=== PATIENT | male | born 1950 | race Caucasian/White ===

== ENCOUNTER → 2017-09-10 | Outpatient (CLI) | payer BC ==
[~2017-09-10] MED LIST: ATOR10 PO; Aspirin EC81 MG PO; Azor 5-40 MG T1 EACH PO; CVS OMEGA-3 KR1 EACH PO; DAILY MULTIPLE1 EACH PO; Fluorouracil10 M1; NAPR500EC PO; Voltaren100 GM TOP
== END ==
LOC: LAB SHORT 13:58 → PLD 13:58
DX: D48.5 Neoplasm of uncertain behavior of skin (principal)
CPT/HCPCS: 88305

== ENCOUNTER 2020-04-28 05:54 | Inpatient (IN) | payer OTHER ==
[~2020-04-28] VITALS: Ht 177.8 cm; Wt 76.5 kg
[2020-04-28 06:25] LABS: BASOPHILS ABSOLUTE AUTO 0.08 K/mm3 (0.00-0.23); BASOPHILS PERCENT AUTO 1 % (0-2); EOSINOPHILS ABSOLUTE AUTO 0.34 K/mm3 (0.00-0.68); EOSINOPHILS PERCENT AUTO 3 % (0-6); Hematocrit 31.5 % (37.0-53.0); Hemoglobin 10.9 g/dL (13.5-17.5); IMMATURE GRAN ABSOLUTE AUTO 0.07 K/mm3 (0.00-0.10); IMMATURE GRAN PERCENT AUTO 1 % (0-1); LYMPHOCYTES ABSOLUTE AUTO 1.35 K/mm3 (0.84-5.20); LYMPHOCYTES PERCENT AUTO 13 % (21-46); MONOCYTES ABSOLUTE AUTO 1.84 K/mm3 (0.16-1.47); MONOCYTES PERCENT AUTO 17 % (4-13); Mean Corpuscular HGB 37.5 pg (26.0-34.0); Mean Corpuscular HGB Conc 34.6 g/dL (31.5-36.5); Mean Corpuscular Volume 108 fL (80-100); Mean Platelet Volume 9.9 fL (9.1-12.4); NEUTROPHILS ABSOLUTE AUTO 7.15 K/mm3 (1.96-9.15); NEUTROPHILS PERCENT AUTO 66 % (41-73); Platelet Count 104 K/mm3 (150-400); RDW Coefficient Variation 14.1 % (11.7-14.2); RDW Standard Deviation 56.2 fL (35.1-46.3); Red Blood Cell Count 2.91 M/mm3 (4.30-5.90); White Blood Cell Count 10.83 K/mm3 (4.00-11.30)
[2020-04-28 09:49] LABS: Influenza A, PCR Negative (NEGATIVE); Influenza B, PCR Negative (NEGATIVE); Resp Syncytial Virus, PCR Negative (NEGATIVE); SARS-Cov-2 (COVID-19) PCR, MMC Negative (NEGATIVE)
[2020-04-28 10:28] LABS: Alanine Aminotransfer (ALT/SGP 35 U/L (12-78); Albumin, Blood 2.9 g/dL (3.4-5.0); Albumin/Globulin Ratio 0.6 (0.8-1.8); Alk Phos 123 U/L (50-136); Anion Gap 11 mmol/L (6-16); Aspartate Aminotrans (AST/SGOT 73 U/L (12-37); Bilirubin, Total 5.1 mg/dL (0.1-1.0); Blood Urea Nitrogen 7 mg/dL (8-24); Bun/Creatinine Ratio 8.6 (12.0-20.0); CO2, Blood 21 mmol/L (21-32); Calcium, Blood 8.2 mg/dL (8.5-10.1); Chloride, Blood 95 mmol/L (98-108); Creatinine, Blood 0.81 mg/dL (0.60-1.20); Globulin, Blood 4.9 g/dL (2.2-4.0); Glomerular Filtration Rate >60 (60-); Glucose, Blood 113 mg/dL (70-99); Potassium, Blood 4.2 mmol/L (3.5-5.5); Sodium, Blood 127 mmol/L (136-145); Total Protein, Blood 7.8 g/dL (6.4-8.2); Troponin I 0.043 ng/mL (0.000-0.040)
[2020-04-28] MEDS ORDERED: AMLODIPINE-OLM1 EAC2 PO (11:46)
[2020-04-28] MEDS ORDERED: ALLERCLEAR10 MG PO (14:02)
--- NOTE | 2020-04-28 14:11 | NUR ---
pt arrived to p[facility] 1 via [facility] from ED. report recieved, in attendence, pt able to stand and transfer himself to the bed, a/ox3, pleasant and cooperative with care, follows commands well, denies pain, states he's breathing much better than when he came in, lungs are a bit course in bases, clear in upper n[place], resp even and unlabored, no cough noted, hrr, tele in place running sr to st per monitor, see strip, 2+ pitting edema noted to b/l le, mid way up leg, iv is saline lock, site is clear and patent, btx4, abd round soft nontender, voids via urinal without diff, skin c/w/d, face is flushed, juan castaneda, oriented to room layout and call system, call light in reach.
--- NOTE | 2020-04-28 16:00 | NUR ---
PT HANDS SHAKEY, STATES FEELING ANXIOUS/ MED WITH ATIVAN PER EMAR. 0.5 MG TO START.
--- NOTE | 2020-04-28 16:39 | NUR ---
PT RESTING, EYES CLOSED. RESP EASY, UNLABORED. DID NOT AWAKEN
--- NOTE | 2020-04-28 17:59 | NUR ---
received pt care at 1500 this aft. has been quite pleasant and coop. states was some shakey and hands trembling about 4pm. admin 1/2 mg ativan. he relaxed and rested for some time. ate better than half of dinner. left after he ralaxed. no new concerns at this time. bed in low position, call lite in reach, calls approp.
--- NOTE | 2020-04-28 18:02 | NUR ---
echocardiogram completed
--- NOTE | 2020-04-29 00:44 | NUR ---
CALLED DR. KELLOGG. NOTIFIED HER PATIENT'S TEMPERATURE WAS 101.0, GAVE TYLENOL 500 MG PO PER EMAR, AND THEN 1 HOUR LATER IT WAS 100.9. READ HER CHEST X RAY REPORT. PATIENT NOT ON ABX, NO KNOWN DRUG ALLERGIES. ORDERS RECEIVED FOR ROCEPHIN 1G IV NOW AND THEN DAILY, AZITHROMYCIN 500 MG IV NOW AND THEN DAILY, BLOOD CULTURES STAT. NOTIFIED HER PATIENT'S TROPONIN TRENDING UP, FIRST ONE 0.043 AND MOST RECENT 0.420, ORDERS RECEIVED TO DRAW TROPONIN IN AM. ORDERS READ BACK AND VERIFIED.
[2020-04-29 03:53] LABS: BASOPHILS ABSOLUTE AUTO 0.06 K/mm3 (0.00-0.23); BASOPHILS PERCENT AUTO 1 % (0-2); EOSINOPHILS ABSOLUTE AUTO 0.66 K/mm3 (0.00-0.68); EOSINOPHILS PERCENT AUTO 8 % (0-6); Hematocrit 27.5 % (37.0-53.0); Hemoglobin 9.5 g/dL (13.5-17.5); IMMATURE GRAN ABSOLUTE AUTO 0.03 K/mm3 (0.00-0.10); IMMATURE GRAN PERCENT AUTO 0 % (0-1); LYMPHOCYTES ABSOLUTE AUTO 1.25 K/mm3 (0.84-5.20); LYMPHOCYTES PERCENT AUTO 15 % (21-46); MONOCYTES ABSOLUTE AUTO 1.47 K/mm3 (0.16-1.47); MONOCYTES PERCENT AUTO 17 % (4-13); Mean Corpuscular HGB 37.4 pg (26.0-34.0); Mean Corpuscular HGB Conc 34.5 g/dL (31.5-36.5); Mean Corpuscular Volume 108 fL (80-100); Mean Platelet Volume 9.3 fL (9.1-12.4); NEUTROPHILS ABSOLUTE AUTO 5.01 K/mm3 (1.96-9.15); NEUTROPHILS PERCENT AUTO 59 % (41-73); Platelet Count 92 K/mm3 (150-400); RDW Coefficient Variation 14.3 % (11.7-14.2); RDW Standard Deviation 56.2 fL (35.1-46.3); Red Blood Cell Count 2.54 M/mm3 (4.30-5.90); White Blood Cell Count 8.48 K/mm3 (4.00-11.30)
[2020-04-29 04:24] LABS: Anion Gap 6 mmol/L (6-16); Blood Urea Nitrogen 14 mg/dL (8-24); Bun/Creatinine Ratio 12.1 (12.0-20.0); CO2, Blood 27 mmol/L (21-32); Calcium, Blood 7.8 mg/dL (8.5-10.1); Chloride, Blood 96 mmol/L (98-108); Creatinine, Blood 1.16 mg/dL (0.60-1.20); Glomerular Filtration Rate >60 (60-); Glucose, Blood 86 mg/dL (70-99); Potassium, Blood 4.2 mmol/L (3.5-5.5); Sodium, Blood 129 mmol/L (136-145); Troponin I 0.417 ng/mL (0.000-0.040)
--- NOTE | 2020-04-29 05:54 | NUR ---
SHIFT SUMMARY: PATIENT A/OX3. HAS BEEN PLEASANT AND COOPERATIVE WITH CARE. CIWA INCREASING, LAST CIWA 5 D/T TREMORS AND SWEAT. TELE HAS SHOWN SINUS RHYTHM. PATIENT HAS DENIED CHEST PAIN AND PALPITATIONS THROUGHOUT THE SHIFT. ON 2L O2 VIA NC. STATES THAT HIS BREATHING FEELS "MUCH BETTER". STANDS TO USE URINAL. AMBULATED TO BATHROOM WITH SBA, REPORTED SLIGHT SOB BUT STATES THAT IT IS MUCH BETTER THAN PRIOR TO ADMISSION. HAD KELVIN ROBLERO MD NOTIFIED, STAT BLOOD CULTURES DRAWN AND ABX ORDERED. TROPONIN THIS AM 0.417, SLIGHTLY DECREASED FROM PREVIOUS TROPONIN OF 0.420. WILL CONTINUE TO MONITOR AND REPORT TO ONCOMING RN.
--- NOTE | 2020-04-29 17:26 | NUR ---
SHIFT ASSESMENT; A/A/OX4 THROUGHOUT SHIFT. L/S CLEAR, 2L 02 VIA NC. SCHEDULED FOR NUC MED STUDY TOMORROW AM, NPO AFTER MIDNIGHT. CIWA ASSESSED Q4 AND MEDICATED ORDERED. VSS WITH SLIGHT INCREASED TEMP OF 100.1. OFFERED PO TYL FOR TEMP, DECLINED BY PT. SLEEPING INTERMITANTLY THROUGHOUT DAY, SPOUSE AT BEDSIDE DURING SHIFT. UP TO BEDSIDE TO USE URINAL INDEPENDANTLY WITHOUT DIFFICULTY DURING SHIFT. WILL CONTINUE TO MONITOR AND TREAT UNTIL CHANGE OF SHIFT.
--- NOTE | 2020-04-29 21:02 | NUR ---
ASSUMED CARE OF PATIENT, GIBRAN MIXON MOVED TO ICU. PATIENT AWAKE, ALERT, TALKING, CALL LIGHT IN REACH. SEE i'mma FOR FULL ASSESSMENT.
--- NOTE | 2020-04-30 01:31 | NUR ---
patient has nose bleed, using tissue to attempt to stop. will monitor.
[2020-04-30 04:01] LABS: Hemoglobin 8.7 g/dL (13.5-17.5); Mean Corpuscular HGB 37.5 pg (26.0-34.0); Mean Corpuscular HGB Conc 34.8 g/dL (31.5-36.5); Mean Corpuscular Volume 108 fL (80-100); Platelet Count 99 K/mm3 (150-400); RDW Coefficient Variation 14.2 % (11.7-14.2); RDW Standard Deviation 55.4 fL (35.1-46.3); Red Blood Cell Count 2.32 M/mm3 (4.30-5.90); White Blood Cell Count 8.13 K/mm3 (4.00-11.30)
--- NOTE | 2020-04-30 04:16 | NUR ---
NOSE CONTINUES TO BLEED. PATIENT PACKING NOSE WITH TISSUES.
[2020-04-30 04:24] LABS: Anion Gap 6 mmol/L (6-16); Blood Urea Nitrogen 20 mg/dL (8-24); Bun/Creatinine Ratio 15.9 (12.0-20.0); CO2, Blood 28 mmol/L (21-32); Calcium, Blood 8.1 mg/dL (8.5-10.1); Chloride, Blood 95 mmol/L (98-108); Creatinine, Blood 1.26 mg/dL (0.60-1.20); Glomerular Filtration Rate >60 (60-); Glucose, Blood 89 mg/dL (70-99); Potassium, Blood 4.1 mmol/L (3.5-5.5); Sodium, Blood 129 mmol/L (136-145)
--- NOTE | 2020-04-30 07:42 | NUR ---
NURSING PCU DAYSHIFT: Assumed care of pt at approx 0700. A/O, very pleasant and cooperative w/care. Mild general weakness noted in LE's r/t current illness, stands at bedside independently and w/o difficulty. Denies any pain/discomfort at rest. Skin is dry, intact w/no breakdown noted. Temp 100.3, tylenol administered as ordered. Tele in place, SR, no c/o CP/pressure, murmur noted, SBP 100, trace-1+ BLE edema. L/S fairly cta t/o, O2 sat mid 90's on RA, mild dyspnea w/exertion, occ dry/BACK ROLLER cough. Abd SNT, BT+, urgency voiding r/t IV diuretic, u/o clear/orange. 20g PIV in LAC, s/l, flushes w/o difficulty. No s/s of acute distress at this time. Nuc med at bedside for injection r/t resting portion of stress test, Lexiscan scheduled for approx 1400. Pt denies any current needs or questions regarding plan of care. Call light in reach, awaiting rounding from PMD, cont to monitor for any changes.
[2020-04-30 15:43] LABS: Source, Urine Voided
[2020-04-30 15:54] LABS: Appearance, Urine Clear (Clear); Bilirubin, Urine Neg (Neg); Blood, Urine 1+ (Neg); Color, Urine Yellow (P-Yellow); Glucose Qualitative, Urine Neg (Neg); Ketones, Urine Neg (Neg); Leukocyte Esterase, Urine Neg (Neg); Nitrite, Urine Neg (Neg); Protein, Urine Neg (Neg); Specific Gravity, Urine 1.015 (1.003-1.022); Urobilinogen, Urine 1+ (Normal)
[2020-04-30 16:03] LABS: Bacteria Rare /hpf; Squamous Epithelial Cells Rare /hpf (Few); White Blood Cells, Urine 0-2 /hpf (0-5)
--- NOTE | 2020-04-30 17:47 | NUR ---
NURSING PCU DAYSHIFT SUMMARY: No acute changes noted t/o the shift. Pt remains febrile w/temp 99-100.3, room temperature remains turned down, extra blankets removed. One day stress test completed, results reviewed, pt tolerated well. Seen by PMD, new d/o received, UA sent as ordered. Pt denies any current needs or questions, call light in reach, cont to monitor until prt is given to NOC RN.
[2020-05-01 04:03] LABS: BASOPHILS ABSOLUTE AUTO 0.06 K/mm3 (0.00-0.23); BASOPHILS PERCENT AUTO 1 % (0-2); EOSINOPHILS ABSOLUTE AUTO 0.46 K/mm3 (0.00-0.68); EOSINOPHILS PERCENT AUTO 7 % (0-6); Hematocrit 26.8 % (37.0-53.0); Hemoglobin 9.2 g/dL (13.5-17.5); IMMATURE GRAN ABSOLUTE AUTO 0.02 K/mm3 (0.00-0.10); IMMATURE GRAN PERCENT AUTO 0 % (0-1); LYMPHOCYTES ABSOLUTE AUTO 1.59 K/mm3 (0.84-5.20); LYMPHOCYTES PERCENT AUTO 24 % (21-46); MONOCYTES ABSOLUTE AUTO 1.34 K/mm3 (0.16-1.47); MONOCYTES PERCENT AUTO 20 % (4-13); Mean Corpuscular HGB 36.9 pg (26.0-34.0); Mean Corpuscular HGB Conc 34.3 g/dL (31.5-36.5); Mean Corpuscular Volume 108 fL (80-100); NEUTROPHILS ABSOLUTE AUTO 3.23 K/mm3 (1.96-9.15); NEUTROPHILS PERCENT AUTO 48 % (41-73); Platelet Count 108 K/mm3 (150-400); RDW Coefficient Variation 13.9 % (11.7-14.2); RDW Standard Deviation 54.2 fL (35.1-46.3); Red Blood Cell Count 2.49 M/mm3 (4.30-5.90)
[2020-05-01 04:18] LABS: Alanine Aminotransfer (ALT/SGP 25 U/L (12-78); Albumin, Blood 2.5 g/dL (3.4-5.0); Albumin/Globulin Ratio 0.6 (0.8-1.8); Alk Phos 86 U/L (50-136); Anion Gap 5 mmol/L (6-16); Aspartate Aminotrans (AST/SGOT 43 U/L (12-37); Bilirubin, Total 3.8 mg/dL (0.1-1.0); Blood Urea Nitrogen 22 mg/dL (8-24); Bun/Creatinine Ratio 20.2 (12.0-20.0); CO2, Blood 31 mmol/L (21-32); Calcium, Blood 8.5 mg/dL (8.5-10.1); Chloride, Blood 96 mmol/L (98-108); Creatinine, Blood 1.09 mg/dL (0.60-1.20); Glomerular Filtration Rate >60 (60-); Glucose, Blood 90 mg/dL (70-99); Potassium, Blood 4.1 mmol/L (3.5-5.5); Sodium, Blood 132 mmol/L (136-145); Total Protein, Blood 6.5 g/dL (6.4-8.2)
--- NOTE | 2020-05-01 07:46 | NUR ---
SHIFT SUMMARY PATIENT VERY PLEASENT THROUGHOUT THE NIGHT AND APPEARED TO ENJOY JOKING WITH STAFF. PATIENT APPEARED TO NAP ON AND OFF OCCATIONALLY THROUGHOUT THE NIGHT BUT PATIENT REPORTS HE DOES NOT FEEL LIKE HE WAS ABLE TO SLEEP WELL. PATIENT ABLE TO MOVE SELF ABOUT IN BED. PATIENT ENCOURAGED TO KEEP THE HEAT DOWN IN HIS ROOM AND KEEP BLAKENTS OFF MUCH POSSIBLE TO ASSIST WITH KEEPING HIS TEMP DOWN, HOWEVER, PATIENT WOULD FREQUENTLY PULL HIS BLANKETS UP ANYWAY. VITAL SIGNS CHARTED. TYELNOL GIVEN FOR ELEVATED TEMP PER EMAR. REPORT GIVEN TO ONCOMING RN.
--- NOTE | 2020-05-01 10:13 | NUR ---
Call to Milli Kay, principal planner, in order to ask about tx options to be given to pt regarding alcohol abuse.
[2020-05-01] MEDS ORDERED: AZIT500 PO (11:02)
[2020-05-01] MEDS ORDERED: SPIR25 PO (11:03)
[2020-05-01] MEDS ORDERED: Furosemide40 MG PO (11:03)
--- NOTE | 2020-05-01 11:21 | NUR ---
Reviewed discharge information with the pt; he states that his abdominal ultrasound was completed. STates that his can not come to pick him up and take him home until 4 pm today.
== END 2020-05-01 13:30 | disposition home or self-care (01) | DRG 291 ==
LOC: ER 05:54 → PCU 12:26
PROVIDERS: Emergency Medicine; ADMIT Internal Medicine
DX: I11.0 Hypertensive heart disease with heart failure (principal); J96.01 Acute respiratory failure with hypoxia; I50.41 Acute combined systolic (congestive) and diastolic (congestive) heart failure; K74.60 Unspecified cirrhosis of liver; E78.5 Hyperlipidemia, unspecified; Z20.828 Contact with and (suspected) exposure to other viral communicable diseases; F10.20 Alcohol dependence, uncomplicated; Z87.891 Personal history of nicotine dependence; Z79.82 Long term (current) use of aspirin
CPT/HCPCS: 0241U; 36415; 71045; 71046; 76705; 78452; 80048; 80053; 81001; 83880; 84145; 84484; 85025; 85027; 87040; 93005; 93010; 93017; 93306; 96374; 96375; 99285-25; A9270; A9270-GY; A9500; C9113; J0696; J1940; J2060; J2405; J2785; J7030; J7050

== ENCOUNTER → 2020-08-14 | Outpatient (CLI) | payer OTHER ==
[~2020-08-14] MED LIST changes: +ALLERCLEAR10 MG PO; +AMLODIPINE-OLM1 EAC2 PO; +ASPI81CH PO; +AZIT500 PO; +Furosemide40 MG PO; +LASIX20 M2 PO; +LOSA25 PO; +Lopressor 25 mg25 MG PO; +SPIR25 PO
== END ==
LOC: LAB 09:11 → LAB SHORT 09:11
DX: D48.5 Neoplasm of uncertain behavior of skin (principal)
CPT/HCPCS: 88305

== ENCOUNTER 2020-08-27 16:34 | Observation (INO) | payer OTHER ==
[~2020-08-27] VITALS: Ht 177.8 cm; Wt 80.4 kg
[~2020-08-27 16:34] MED LIST changes: -ASPI81CH PO; -LASIX20 M2 PO; -LOSA25 PO; -Lopressor 25 mg25 MG PO
[2020-08-27] MEDS ORDERED: AMLODIPINE-OLM1 EAC2 PO (17:30)
[2020-08-27] MEDS ORDERED: ATOR10 PO (17:30)
[2020-08-27 17:54] LABS: BASOPHILS ABSOLUTE AUTO 0.05 K/mm3 (0.00-0.23); BASOPHILS PERCENT AUTO 1 % (0-2); EOSINOPHILS ABSOLUTE AUTO 0.24 K/mm3 (0.00-0.68); EOSINOPHILS PERCENT AUTO 4 % (0-6); Hematocrit 36.2 % (37.0-53.0); Hemoglobin 12.6 g/dL (13.5-17.5); IMMATURE GRAN ABSOLUTE AUTO 0.01 K/mm3 (0.00-0.10); IMMATURE GRAN PERCENT AUTO 0 % (0-1); LYMPHOCYTES ABSOLUTE AUTO 1.46 K/mm3 (0.84-5.20); LYMPHOCYTES PERCENT AUTO 27 % (21-46); MONOCYTES ABSOLUTE AUTO 0.79 K/mm3 (0.16-1.47); MONOCYTES PERCENT AUTO 14 % (4-13); Mean Corpuscular HGB Conc 34.8 g/dL (31.5-36.5); Mean Corpuscular Volume 101 fL (80-100); Mean Platelet Volume 9.9 fL (9.1-12.4); NEUTROPHILS ABSOLUTE AUTO 2.95 K/mm3 (1.96-9.15); NEUTROPHILS PERCENT AUTO 54 % (41-73); Platelet Count 143 K/mm3 (150-400); RDW Coefficient Variation 15.3 % (11.7-14.2); RDW Standard Deviation 57.5 fL (35.1-46.3)
[2020-08-27 17:57] LABS: Alanine Aminotransfer (ALT/SGP 40 U/L (12-78); Albumin, Blood 3.4 g/dL (3.4-5.0); Albumin/Globulin Ratio 0.7 (0.8-1.8); Alk Phos 102 U/L (50-136); Anion Gap 7 mmol/L (6-16); Aspartate Aminotrans (AST/SGOT 60 U/L (12-37); Bilirubin, Total 2.1 mg/dL (0.1-1.0); Blood Urea Nitrogen 17 mg/dL (8-24); Bun/Creatinine Ratio 15.5 (12.0-20.0); CO2, Blood 24 mmol/L (21-32); Calcium, Blood 9.2 mg/dL (8.5-10.1); Chloride, Blood 107 mmol/L (98-108); Globulin, Blood 4.6 g/dL (2.2-4.0); Glomerular Filtration Rate >60 (60-); Glucose, Blood 98 mg/dL (70-99); Potassium, Blood 4.2 mmol/L (3.5-5.5); Sodium, Blood 138 mmol/L (136-145)
[2020-08-27 18:04] LABS: Troponin I 0.631 ng/mL (0.000-0.040)
[2020-08-27 21:14] LABS: Percent Saturation 24.7 % (20.0-50.0)
--- NOTE | 2020-08-28 03:56 | NUR ---
SHIFT SUMMARY ADMITTED FROM ER THIS SHIFT FOR CHF EXACERBATION. FULL CODE. TROPONIN, BNP, ELEVATED. RAPID COVID TEST NEGATIVE. SMALL RIGHT PLEURAL EFFUSION. TRACE EDEMA IN BLE. PLAN IS FOR ASA AND LASIX. TELEMETRY: NSR @ 84 BPM. SYSTOLIC MURMUR. PT IS A&O X4, INDEPENDENT.
[2020-08-28 05:28] LABS: BASOPHILS ABSOLUTE AUTO 0.07 K/mm3 (0.00-0.23); BASOPHILS PERCENT AUTO 1 % (0-2); EOSINOPHILS ABSOLUTE AUTO 0.38 K/mm3 (0.00-0.68); EOSINOPHILS PERCENT AUTO 6 % (0-6); Hematocrit 31.3 % (37.0-53.0); Hemoglobin 10.9 g/dL (13.5-17.5); IMMATURE GRAN ABSOLUTE AUTO 0.01 K/mm3 (0.00-0.10); IMMATURE GRAN PERCENT AUTO 0 % (0-1); LYMPHOCYTES ABSOLUTE AUTO 1.85 K/mm3 (0.84-5.20); LYMPHOCYTES PERCENT AUTO 31 % (21-46); MONOCYTES ABSOLUTE AUTO 0.88 K/mm3 (0.16-1.47); MONOCYTES PERCENT AUTO 15 % (4-13); Mean Corpuscular HGB 34.5 pg (26.0-34.0); Mean Corpuscular HGB Conc 34.8 g/dL (31.5-36.5); Mean Corpuscular Volume 99 fL (80-100); Mean Platelet Volume 9.8 fL (9.1-12.4); NEUTROPHILS ABSOLUTE AUTO 2.81 K/mm3 (1.96-9.15); NEUTROPHILS PERCENT AUTO 47 % (41-73); Platelet Count 109 K/mm3 (150-400); RDW Coefficient Variation 15.2 % (11.7-14.2); RDW Standard Deviation 55.9 fL (35.1-46.3); Red Blood Cell Count 3.16 M/mm3 (4.30-5.90)
[2020-08-28 06:00] LABS: Troponin I 0.492 ng/mL (0.000-0.040)
[2020-08-28 06:01] LABS: Alanine Aminotransfer (ALT/SGP 35 U/L (12-78); Albumin, Blood 2.9 g/dL (3.4-5.0); Albumin/Globulin Ratio 0.7 (0.8-1.8); Alk Phos 74 U/L (50-136); Anion Gap 7 mmol/L (6-16); Aspartate Aminotrans (AST/SGOT 47 U/L (12-37); Bilirubin, Total 2.1 mg/dL (0.1-1.0); Blood Urea Nitrogen 16 mg/dL (8-24); Bun/Creatinine Ratio 13.3 (12.0-20.0); CO2, Blood 26 mmol/L (21-32); Calcium, Blood 8.8 mg/dL (8.5-10.1); Chloride, Blood 104 mmol/L (98-108); Glomerular Filtration Rate >60 (60-); Glucose, Blood 78 mg/dL (70-99); Potassium, Blood 4.3 mmol/L (3.5-5.5); Sodium, Blood 137 mmol/L (136-145); Total Protein, Blood 6.9 g/dL (6.4-8.2)
--- NOTE | 2020-08-28 11:17 | NUR ---
Echocardiogram performed by Deepika Rivera under my supervision.
--- NOTE | 2020-08-28 16:44 | NUR ---
SHIFT SUMMARY PATIENT DENIES PAIN, NAUSEA, AND SHORTNESS OF BREATH. PATIENT UP INDEPENDENT IN ROOM. DENIES CHEST PAIN, TELEMETRY SHOWS NSR IN 80'S. ECHO COMPLETED TODAY. PATIENT EATING AND DRINKING WELL. LEASANT AND COOPERATIVE WITH CARE.
[2020-08-28] MEDS ORDERED: ASPI81CH PO (19:14)
[2020-08-28] MEDS ORDERED: LOSA25 PO (19:15)
[2020-08-28] MEDS ORDERED: Lopressor 25 mg25 MG PO (19:16)
[2020-08-28] MEDS ORDERED: LASIX20 M2 PO (19:17)
--- NOTE | 2020-08-28 19:32 | NUR ---
DISCHARGE DISCHARGE MEDICATIONS AND INSTRUCTIONS EXPLAINED TO PATIENT. PATIENT STATED UNDERSTANDING. PATIENT TO CALL PCP AND SCHEDULE FOLLOW UP AND CARDIOLOGY REFERRAL. IV REMOVED WITHOUT ISSUE. BELONGINGS WITH PATIENT. PATIENT ESCORTED TO PRIVATE VEHICLE.
== END 2020-08-28 19:29 | disposition home or self-care (01) ==
LOC: ER 16:34 → MEDS 16:35
PROVIDERS: Physician Assistant; ADMIT Internal Medicine
DX: I11.0 Hypertensive heart disease with heart failure (principal); I50.31 Acute diastolic (congestive) heart failure; I25.10 Atherosclerotic heart disease of native coronary artery without angina pectoris; R77.8 Other specified abnormalities of plasma proteins; E78.5 Hyperlipidemia, unspecified; K74.60 Unspecified cirrhosis of liver; D50.9 Iron deficiency anemia, unspecified; Z87.891 Personal history of nicotine dependence; R60.0 Localized edema; R01.1 Cardiac murmur, unspecified
CPT/HCPCS: 36415; 71260; 80053; 82607; 82728; 82746; 83540; 83550; 83735; 83880; 84484; 85025; 85379; 93005; 93010; 93308; 93321; 96372; 96374-59; 96376; 99285-25; A9270; G0378; J1650; J1940; Q9967

== ENCOUNTER → 2021-01-07 | Outpatient (CLI) | payer OTHER ==
[~2021-01-07] MED LIST changes: +ASPI81CH PO; +LASIX20 M2 PO; +LOSA25 PO; +Lopressor 25 mg25 MG PO
[2021-01-10 12:11] LABS: M-SPIKE, % Not Observed % (Not Observed); PROTEIN,TOTAL,URINE 5.7 mg/dL (Not Estab.)
== END ==
LOC: LAB SHORT 06:50 → LAB 06:50 → LAB FUT 11-30 09:20
PROVIDERS: Family Medicine
DX: F10.10 Alcohol abuse, uncomplicated (principal)
CPT/HCPCS: 81050; 84166; 86335

== ENCOUNTER → 2021-02-25 | Outpatient (CLI) | payer OTHER | END | disposition home or self-care (01) | LOC: LAB SHORT 14:02 | DX: D48.5 Neoplasm of uncertain behavior of skin (principal) | CPT/HCPCS: 88305 ==

== ENCOUNTER 2021-10-28 19:23 | Inpatient (IN) | payer OTHER ==
[~2021-10-28] VITALS: Ht 177.8 cm; Wt 90.0 kg
[2021-10-28 20:04] LABS: BASOPHILS ABSOLUTE AUTO 0.05 K/mm3 (0.00-0.23); BASOPHILS PERCENT AUTO 1 % (0-2); EOSINOPHILS PERCENT AUTO 3 % (0-6); Hematocrit 30.8 % (37.0-53.0); Hemoglobin 10.6 g/dL (13.5-17.5); IMMATURE GRAN ABSOLUTE AUTO 0.02 K/mm3 (0.00-0.10); IMMATURE GRAN PERCENT AUTO 0 % (0-1); LYMPHOCYTES ABSOLUTE AUTO 1.66 K/mm3 (0.84-5.20); LYMPHOCYTES PERCENT AUTO 23 % (21-46); MONOCYTES PERCENT AUTO 11 % (4-13); Mean Corpuscular HGB 34.2 pg (26.0-34.0); Mean Corpuscular HGB Conc 34.4 g/dL (31.5-36.5); Mean Corpuscular Volume 99 fL (80-100); Mean Platelet Volume 9.3 fL (9.1-12.4); NEUTROPHILS ABSOLUTE AUTO 4.45 K/mm3 (1.96-9.15); NEUTROPHILS PERCENT AUTO 62 % (41-73); Platelet Count 117 K/mm3 (150-400); RDW Coefficient Variation 14.5 % (11.7-14.2); RDW Standard Deviation 52.2 fL (35.1-46.3); White Blood Cell Count 7.18 K/mm3 (4.00-11.30)
[2021-10-28] MEDS ORDERED: POTCHL20ER PO (20:06)
[2021-10-28 20:07] LABS: International Normalized Ratio 1.13; Prothrombin Time Results 11.8 Sec (9.7-11.5)
[2021-10-28 20:11] LABS: Alanine Aminotransfer (ALT/SGP 38 U/L (12-78); Albumin, Blood 3.2 g/dL (3.4-5.0); Albumin/Globulin Ratio 0.8 (0.8-1.8); Alk Phos 81 U/L (50-136); Anion Gap 12 mmol/L (6-16); Aspartate Aminotrans (AST/SGOT 41 U/L (12-37); Blood Urea Nitrogen 18 mg/dL (8-24); CHOL/HDL RATIO 2.1; CO2, Blood 21 mmol/L (21-32); Calcium, Blood 8.6 mg/dL (8.5-10.1); Chloride, Blood 101 mmol/L (98-108); Cholesterol 118 mg/dL (50-200); Creatinine, Blood 1.38 mg/dL (0.60-1.20); Globulin, Blood 3.9 g/dL (2.2-4.0); Glomerular Filtration Rate 55 (60-); Glucose, Blood 201 mg/dL (70-99); HDL Cholesterol 56 mg/dL (>39); LDL/HDL RATIO 0.6; Low Density Lipoprotein Chol 32 mg/dL (0-110); Magnesium, Blood 1.8 mg/dL (1.6-2.4); Sodium, Blood 134 mmol/L (136-145); Total Protein, Blood 7.1 g/dL (6.4-8.2); Triglycerides 152 mg/dL (30-160); Very Low Density Lipoprot Chol 30 mg/dL (6-32)
[2021-10-28 20:37] LABS: Influenza A, PCR NEGATIVE (NEGATIVE); Influenza B, PCR NEGATIVE (NEGATIVE); Resp Syncytial Virus, PCR NEGATIVE (NEGATIVE); SARS-Cov-2 (COVID-19) PCR, MMC NEGATIVE (NEGATIVE)
[2021-10-28 21:04] LABS: Anti-Xa UFH, PHA Monitoring <0.10 IU/mL
[2021-10-29 03:13] LABS: BASOPHILS ABSOLUTE AUTO 0.04 K/mm3 (0.00-0.23); BASOPHILS PERCENT AUTO 1 % (0-2); EOSINOPHILS ABSOLUTE AUTO 0.21 K/mm3 (0.00-0.68); EOSINOPHILS PERCENT AUTO 3 % (0-6); Hematocrit 30.6 % (37.0-53.0); Hemoglobin 10.4 g/dL (13.5-17.5); IMMATURE GRAN ABSOLUTE AUTO 0.01 K/mm3 (0.00-0.10); IMMATURE GRAN PERCENT AUTO 0 % (0-1); LYMPHOCYTES ABSOLUTE AUTO 1.91 K/mm3 (0.84-5.20); LYMPHOCYTES PERCENT AUTO 31 % (21-46); MONOCYTES ABSOLUTE AUTO 0.73 K/mm3 (0.16-1.47); MONOCYTES PERCENT AUTO 12 % (4-13); Mean Corpuscular HGB 34.2 pg (26.0-34.0); Mean Corpuscular Volume 101 fL (80-100); Mean Platelet Volume 9.3 fL (9.1-12.4); NEUTROPHILS ABSOLUTE AUTO 3.25 K/mm3 (1.96-9.15); NEUTROPHILS PERCENT AUTO 53 % (41-73); Platelet Count 113 K/mm3 (150-400); RDW Coefficient Variation 14.2 % (11.7-14.2); RDW Standard Deviation 52.1 fL (35.1-46.3); Red Blood Cell Count 3.04 M/mm3 (4.30-5.90); White Blood Cell Count 6.15 K/mm3 (4.00-11.30)
[2021-10-29 03:30] LABS: Albumin, Blood 3.2 g/dL (3.4-5.0); Albumin/Globulin Ratio 0.9 (0.8-1.8); Bilirubin, Total 1.5 mg/dL (0.1-1.0); Bun/Creatinine Ratio 15.2 (12.0-20.0); Calcium, Blood 8.6 mg/dL (8.5-10.1); Creatinine, Blood 1.25 mg/dL (0.60-1.20); Globulin, Blood 3.5 g/dL (2.2-4.0); Potassium, Blood 4.3 mmol/L (3.5-5.5); Total Protein, Blood 6.7 g/dL (6.4-8.2)
--- NOTE | 2021-10-29 05:45 | NUR ---
NIGHTSHIFT SUMMARY PT IS AXO X4 AND COMMUNICATING APPROPRIATELY. THE PT HAS DENIED ANY CP OR PRESSURE THIS SHIFT. PT ABLE TO AMBULATE TO RESTROOM W/O ANY SOB OR ANGINA. VSS AND O2 SATS >92% ON RM AIR. PT ON HEPARIN GTT UNINTERUPTED THIS SHIFT. PROVIDER NOTIFIED OF STILL RISING TROPONINS DESPITE THE PT BEING ASYMPTOMATIC, NO CHANGES TO CARE PLAN. PT ABLE TO SLEEP COMFORTABLY IN BED FOR MOST OF THE NIGHT. WILL REPORT TO ONCOMING RN.
--- NOTE | 2021-10-29 08:22 | NUR ---
NURSING PCU DAYSHIFT: Assumed care of pt at approx 0700. A/O, very pleasant, cooperative with care. Ambulates independently and w/o difficulty. Denies any pain/discomfort at rest. Skin intact w/no breakdown noted. Reported epistaxis since covid swab, though has improved. Tele in place, NSR, no c/o CP/pressure, SBP 140 prior to a.m. meds, trace ble edema. L/S cta t/o, occ dry/COUPLER cough, denies dyspnea, O2 sat upper 90's on RA. Abd SNT, BT+, voiding w/o difficulty. PIV x2, hep gtt infusing at 23.7 mls/hr (13 u/kg/hr) as per pharmacy dosing. No s/s of acute distress at this time. Seen by PMD, irrigation technician currently at bedside to discuss tx plan. Call light in reach and pt has been able to use w/o difficulty. NPO at this time in anticipation of possible angiogram. Cont to monitor for any changes.
[2021-10-29 13:45] LABS: Stool Occult Blood Guaiac 1 Neg (Neg)
--- NOTE | 2021-10-29 14:01 | NUR ---
Received call from Primary RN Simona reporting Pt and family would like to discuss AD/POLST. Pt resting in bed and is A&O. Pt denies pain and dyspnea at this time. He does report mild to moderate dyspnea with exertion. Pt's spouse Tere at bedside. Pt confirms requesting information on AD and POLST. Educated on AD and each section to complete. Educated on meaning of life support and tube feeding. Discussed the importance of appointing a healthcare lead customer service representative. Answered questions and offered therapeutic listening. Discussed POLST form. Educated on life sustaining measures including risk factors and implications of CPR. Educated on each section to complete and educated on choices. Contined therapeutic listening and answered questions. Pt reports plan to discuss further with family before completing. Provided Palliative Care contact information. Pt expresses appreciation and reports no other concerns. Palliative Care will remain available.
--- NOTE | 2021-10-29 15:38 | NUR ---
Echocardiogram performed.
--- NOTE | 2021-10-29 16:27 | NUR ---
TR BAND RECOVERY PT RETURNED FROM HC AT APPROX 0950. TR BAND IN PLACE WITH 14CC OF AIR. REMOVAL OF AIR BEGAN AT 1215, 2CC REMOVED EVERY 15-30 MINUTES. SITE REMAINS STABLE WITH NO SIGN OF HEMATOMA OR BLEED. TR BAND REMOVED AT 1615, TEGADERM PLACED, WRIST BOARD IN PLACE.
--- NOTE | 2021-10-29 17:12 | NUR ---
NURSING PCU DAYSHIFT SUMMARY: Cardiac and respiratory status have remained unchanged t/o the shift. Pt to HC for angiogram this a.m. and returned to room at approx 0950 w/TR band to R radial. Recovered per protocol and w/o difficulty, site stable, wrist board in place. Hep gtt resumed at approx 1700 per cardiology d/o. Plan to COBRA transfer to higher level of care for 3v CABG and tx of valve. Contacted transfer centers, pt placed on waitlist for [facility]) [phone], all other facilities at capacity w/no waitlist available at this time. Pt and spouse updated and educated on plan of care. Questions answered, concerns addressed. Pt is resting comfortably in room at this time and has remained in good spirits t/o the day. Call light in reach, cont to monitor for any changes.
[2021-10-30 05:18] LABS: BASOPHILS ABSOLUTE AUTO 0.05 K/mm3 (0.00-0.23); BASOPHILS PERCENT AUTO 1 % (0-2); EOSINOPHILS ABSOLUTE AUTO 0.24 K/mm3 (0.00-0.68); EOSINOPHILS PERCENT AUTO 5 % (0-6); Hematocrit 30.3 % (37.0-53.0); Hemoglobin 10.4 g/dL (13.5-17.5); IMMATURE GRAN ABSOLUTE AUTO 0.01 K/mm3 (0.00-0.10); IMMATURE GRAN PERCENT AUTO 0 % (0-1); LYMPHOCYTES ABSOLUTE AUTO 1.45 K/mm3 (0.84-5.20); LYMPHOCYTES PERCENT AUTO 28 % (21-46); MONOCYTES ABSOLUTE AUTO 0.83 K/mm3 (0.16-1.47); MONOCYTES PERCENT AUTO 16 % (4-13); Mean Corpuscular HGB 34.4 pg (26.0-34.0); Mean Corpuscular HGB Conc 34.3 g/dL (31.5-36.5); Mean Corpuscular Volume 100 fL (80-100); Mean Platelet Volume 9.4 fL (9.1-12.4); NEUTROPHILS ABSOLUTE AUTO 2.69 K/mm3 (1.96-9.15); NEUTROPHILS PERCENT AUTO 51 % (41-73); Platelet Count 103 K/mm3 (150-400); RDW Standard Deviation 52.1 fL (35.1-46.3); Red Blood Cell Count 3.02 M/mm3 (4.30-5.90); White Blood Cell Count 5.27 K/mm3 (4.00-11.30)
[2021-10-30 05:32] LABS: Albumin, Blood 2.9 g/dL (3.4-5.0); Anion Gap 4 mmol/L (6-16); Blood Urea Nitrogen 24 mg/dL (8-24); Bun/Creatinine Ratio 19.8 (12.0-20.0); CO2, Blood 27 mmol/L (21-32); Calcium, Blood 8.6 mg/dL (8.5-10.1); Chloride, Blood 107 mmol/L (98-108); Creatinine, Blood 1.21 mg/dL (0.60-1.20); Glomerular Filtration Rate 65 (60-); Glucose, Blood 99 mg/dL (70-99); Phosphorus, Blood 3.3 mg/dL (2.5-4.9); Potassium, Blood 4.4 mmol/L (3.5-5.5); Sodium, Blood 138 mmol/L (136-145)
--- NOTE | 2021-10-30 05:49 | NUR ---
CLINICAL RESOURCE DIRECTOR SUMMARY PT IS AXO X4 AND COMMUNICATING APPROPRIATELY. PT DENYING ANY CP OR PRESSURE THIS SHIFT. BP WNL AND STABLE. TELE SHOWING SR IN THE 80'S. PT AFEBRILE. O2 SATS >92% ON RM AIR. PT ABLE TO SLEEP COMFORTABLY FOR MOST OF THE NIGHT WITH THE CALL LIGHT WITHIN REACH. R RADIAL SITE HSOWING NO S/S OF BLEEDING OR HEMATOMA. HEPARIN GTT RUNNING UNADJUSTED THIS SHIFT. WILL REPORT TO ONCOMING RN.
--- NOTE | 2021-10-30 18:27 | NUR ---
NO ACUTE EVENTS T/O SHIFT. PT DENIES CHEST PAIN OR PRESSURE, R RADIAL ANGIO SITE WNL. PT ABLE TO AMBULATE AROUND UNIT W/O CHEST PAIN. SR ON TELEMETRY. AWAITING BED AT [facility] IN [place]. SEE DOCUMENTED VS. WILL CONTINUE TO MONITOR AND GIVE REPORT TO NOC SHIFT RN.
[2021-10-31 04:22] LABS: BASOPHILS ABSOLUTE AUTO 0.03 K/mm3 (0.00-0.23); BASOPHILS PERCENT AUTO 1 % (0-2); EOSINOPHILS ABSOLUTE AUTO 0.27 K/mm3 (0.00-0.68); EOSINOPHILS PERCENT AUTO 6 % (0-6); Hematocrit 29.1 % (37.0-53.0); Hemoglobin 9.9 g/dL (13.5-17.5); IMMATURE GRAN ABSOLUTE AUTO 0.01 K/mm3 (0.00-0.10); IMMATURE GRAN PERCENT AUTO 0 % (0-1); LYMPHOCYTES ABSOLUTE AUTO 1.67 K/mm3 (0.84-5.20); LYMPHOCYTES PERCENT AUTO 36 % (21-46); MONOCYTES ABSOLUTE AUTO 0.76 K/mm3 (0.16-1.47); MONOCYTES PERCENT AUTO 16 % (4-13); Mean Corpuscular HGB 34.4 pg (26.0-34.0); Mean Corpuscular Volume 101 fL (80-100); Mean Platelet Volume 9.7 fL (9.1-12.4); NEUTROPHILS ABSOLUTE AUTO 1.95 K/mm3 (1.96-9.15); NEUTROPHILS PERCENT AUTO 42 % (41-73); Platelet Count 111 K/mm3 (150-400); RDW Coefficient Variation 14.5 % (11.7-14.2); RDW Standard Deviation 53.4 fL (35.1-46.3); Red Blood Cell Count 2.88 M/mm3 (4.30-5.90); White Blood Cell Count 4.69 K/mm3 (4.00-11.30)
[2021-10-31 05:26] LABS: Ferritin, Serum 154 ng/mL (26-388); Iron Serum 70 ug/dL (65-175); Percent Saturation 22.4 % (20.0-50.0); Total Iron Binding Capacity 312 ug/dL (250-450)
[2021-10-31 05:30] LABS: Albumin, Blood 2.8 g/dL (3.4-5.0); Anion Gap 6 mmol/L (6-16); Blood Urea Nitrogen 24 mg/dL (8-24); Bun/Creatinine Ratio 20.9 (12.0-20.0); CO2, Blood 25 mmol/L (21-32); Calcium, Blood 8.7 mg/dL (8.5-10.1); Chloride, Blood 109 mmol/L (98-108); Creatinine, Blood 1.15 mg/dL (0.60-1.20); Glomerular Filtration Rate 69 (60-); Glucose, Blood 98 mg/dL (70-99); Phosphorus, Blood 3.5 mg/dL (2.5-4.9); Potassium, Blood 4.7 mmol/L (3.5-5.5); Sodium, Blood 140 mmol/L (136-145)
--- NOTE | 2021-10-31 05:50 | NUR ---
SLITTING MACHINE FEEDER SUMMARY PT IS AXO X4 AND COMMUNICATING APPROPRIATELY. PT DENYING ANY CP OR PRESSURE THIS SHIFT. VSS AND AFEBRILE O2 SATS >92% ON RM AIR. HEPARIN GTT RUNNING UNINTERUPTED THIS SHIFT. NO CHANGES OVERNIGHT. WILL REPORT TO ONCOMING RN.
--- NOTE | 2021-10-31 11:56 | NUR ---
Upon receiving a spiritual care referral, I visit pt. Pt tells me about his medical issues and his hopes and concerns going forward. He talks about the loss of a very dear friend a few days ago and how he is struggling with grief. He then shares about his coping skills and what inspires and moves him. Top of the list for strength and stability is his Druze/Zoroastrianism aj. I listen empathically and provide prayer and encouraging director of counseling. patient responds well and shows signs of increased peace and an elevated mood.
--- NOTE | 2021-10-31 12:10 | NUR ---
Spiritual care visit conducted. Patient is sitting on EOB and alert and has family present int the rm. I meet his family and learn about pt's medical issues and pt's positive and helpful outlook. I reinforce helpful attitudes and practices and provide therapeutic listening, companionship and prayer. Pt and family responds well and show signs of an elevated mood.
--- NOTE | 2021-10-31 17:58 | NUR ---
ASSUMED CARE OF PT AT 0700. NO ACUTE EVENTS T/O THE SHIFT. PT HAS DENIED CHEST PAIN OR PRESSURE. PT UP AMBULATING IN ROOM AND ON THE NURSING UNIT. CONTINUE TO AWAIT COBRA TRANSFER. R RADIAL SITE WITH SOME BRUISING, SITE NONTENDER, NO SWELLING OR HEMATOMA NOTED. WILL CONTINUE TO MONTOR AND GIVE REPORT TO NOC SHIFT RN.
--- NOTE | 2021-11-01 05:46 | NUR ---
SHIFT SUMMARY NO ACUTE CHANGES OVERNIGHT. PT ALERT, ORIENTED, VSS. REMAINED ON ROOM AIR, DENIES CP. PT INDEPENDENT IN ROOM. HEPARIN INFUSING CONTINUOUSLY PER EMAR. PT RESTING COMFORTABLY IN ROOM. CALL LIGHT IN REACH.
--- NOTE | 2021-11-01 09:32 | NUR ---
CARE ASSUMPTION THIS RN ASSUMED CARE AT 0700 FROM KARRIE MIXON. VSS. TELE SR 74. PATIENT NEURO IS INTACT. ALERT AND ORIENTED X4. PERRLA. PATIENT REPORTS NO CHEST PAIN, PAIN, OR SHORTNESS OF BREATH. PATIENT HAS STRONG RADAIL AND PEDIS PULSES. NO EDEMA NOTED. CLEAR LUNG SOUNDS. ABD SOFT NONTENDER AND ACTIVE. NO SKIN ISSUES. RIGHT RADIAL SITE HAS SOME BRUSING, BUT NOT HEMATOMA, BLEEDING OR TENDERNESS. SEE SHIFT ASSESSMENT FOR FURTHER DETAILS. HEPARIN DRIP AT12U/KG/HR DOSE WEIGHT AT 91KG. PATIENT IS INDEPDENT IN ROOM AND PERFORMING ADLS. PATIENT CALLS IF NEEDING ASSISTANCE. MD HOFFMAN SAW PATIENT THIS AM. PATIENT IS AWAITING TRANSFER. CALL LIGHT IS WITHIN REACH AND BED IN LOWEST POSITION. WILL CONTINUE TO MONITOR AND PROVIDE CARE.
--- NOTE | 2021-11-01 17:04 | NUR ---
SHIFT SUMMARY PATIENT NEURO REMAINS INTACT. VSS. STILL AWAITING FOR [facility]AIL[facility] BED FOR TRANSFER. NO ACUTE CHANGES THIS SHIFT. CALL LIGHT WITHIN REACH. BED IN LOWEST POSITON. HEPARIN DRIP AT 12U/KG/HR. WILL CONTINUE TO MONTIOR AND PROVIDE CARE UNTIL HAND OFF WITH NEXT SHIFT.
--- NOTE | 2021-11-02 06:18 | NUR ---
SHIFT SUMMARY AWAITING COBRA TRANSFER PATIENT ALERT AND ORIENTED x4, PLEASANT AND COOPERATIVE WITH CARE. VSS. PATIENT ON RA WITH O2 SAT >90%. DENIES CHEST PAIN, N/T, SOB. NO CHANGES TO HEPARIN GTT THIS MORNING. PATIENT AMBULATING IN ROOM INDEPENDENTLY. NO OTHER SIGNIFICANT CHANGES THIS SHIFT. WILL REPORT TO DAY SHIFT RN.
[2021-11-02 10:45] LABS: Hematocrit 29.1 % (37.0-53.0); Hemoglobin 10.2 g/dL (13.5-17.5); Mean Corpuscular HGB 35.1 pg (26.0-34.0); Mean Corpuscular HGB Conc 35.1 g/dL (31.5-36.5); Mean Corpuscular Volume 100 fL (80-100); Platelet Count 106 K/mm3 (150-400); RDW Coefficient Variation 14.7 % (11.7-14.2); RDW Standard Deviation 53.7 fL (35.1-46.3); Red Blood Cell Count 2.91 M/mm3 (4.30-5.90); White Blood Cell Count 4.74 K/mm3 (4.00-11.30)
--- NOTE | 2021-11-02 11:53 | NUR ---
UPDATE CARDIOLOGY AT BEDSIDE. PLAN FOR PT TO REMAIN ON HEPARIN GTT UNTIL TRANSFER TO HIGHER LEVEL OF CARE. NO NEW ORDERS AT THIS TIME. WILL CONT TO MONITOR.
--- NOTE | 2021-11-02 16:39 | NUR ---
UPDATE/[facility] TRANSF[facility] NOTIF[facility] NURSING INSULATION EXTRUDER OPERATOR. [facility] NOTIFIED OF NEED OF TRANSPORTATION. PT TRANSPORTED BY [facility] WITH COBRA PACKET AND ALL BELONGINGS. HEPARIN GTT AT 12 U/KG/HR. PT ON CONT EKG MONITORING DURING TRANSPORT. UPDATED ON PT TRANSPORT, ROOM NUMBER AND VISITOR POLICY. APURVA HOBBS GIVEN REPORT ON PT.
== END 2021-11-02 16:37 | disposition short-term general hospital (02) | DRG 281 ==
LOC: ER 19:23 → PCU 21:29
PROVIDERS: Family Medicine; Internal Medicine; Internal Medicine Cardiovascular Disease; Student in an Organized Health Care Education/Training Program; ADMIT Internal Medicine
PROC: 4A023N7 Measurement of Cardiac Sampling and Pressure, Left Heart, Percutaneous Approach (ICD-10-PCS; principal; 2021-10-29)
PROC: B2111ZZ Fluoroscopy of Multiple Coronary Arteries using Low Osmolar Contrast (ICD-10-PCS; 2021-10-29)
PROC: B2151ZZ Fluoroscopy of Left Heart using Low Osmolar Contrast (ICD-10-PCS; 2021-10-29)
DX: I21.4 Non-ST elevation (NSTEMI) myocardial infarction (principal); I50.30 Unspecified diastolic (congestive) heart failure; I13.0 Hypertensive heart and chronic kidney disease with heart failure and stage 1 through stage 4 chronic kidney disease, or unspecified chronic kidney disease; Z20.822 Contact with and (suspected) exposure to COVID-19; I35.0 Nonrheumatic aortic (valve) stenosis; I34.0 Nonrheumatic mitral (valve) insufficiency; N18.30 Chronic kidney disease, stage 3 unspecified; D63.1 Anemia in chronic kidney disease; D69.6 Thrombocytopenia, unspecified; Z91.14 Patient's other noncompliance with medication regimen; I25.10 Atherosclerotic heart disease of native coronary artery without angina pectoris; R73.9 Hyperglycemia, unspecified; K74.60 Unspecified cirrhosis of liver; I25.5 Ischemic cardiomyopathy; E78.00 Pure hypercholesterolemia, unspecified; E78.5 Hyperlipidemia, unspecified; Z79.82 Long term (current) use of aspirin; Z79.899 Other long term (current) drug therapy; Z90.89 Acquired absence of other organs; Z98.890 Other specified postprocedural states; Z87.891 Personal history of nicotine dependence
CPT/HCPCS: 0241U; 36415; 71045; 76937; 80053; 80061; 80069; 82270; 82607; 82728; 82746; 83036; 83540; 83550; 83735; 84484; 85025; 85027; 85347; 85520; 85610; 85730; 86850; 86900; 86901; 93005; 93010; 93306; 93458; 96365; 96366; 99152; 99153; 99285-25; A9270; C1769; C1887; C1894; J1644; J2250; J3010; J7030; J7040; Q9967

== ENCOUNTER 2024-02-09 09:08 | Day surgery (SDC) | payer OTHER ==
[2024-02-09] VITALS (14 sets, daily range): BP systolic 108–168; BP diastolic 61–114
[~2024-02-09] VITALS: Ht 177.8 cm; Wt 86.0 kg
[~2024-02-09 09:08] MED LIST changes: +Hair, Skin & N1 EACH PO; +Lactated Ringer's 1,000 ML IV SCH; +POTCHL20ER PO
[2024-02-09] MEDS ORDERED: propofoL 20 ML IV ONE (10:37)
--- NOTE | 2024-02-09 10:54 | NUR ---
02/09/24 1054 Ronald Roberts HISTORY, CHART, MEDICATIONS AND ALLERGIES REVIEWED BEFORE START OF PROCEDURE. PATIENT CONFIRMS NPO STATUS AND AGREES WITH SCHEDULED PROCEDURE. 3-LEAD EKG REVIEWED WITH PHYSICIAN PRIOR TO START OF PROCEDURE. MONITOR INTACT WITH CONTINUOUS PULSE OXIMETRY,CAPNOGRAPHY, 3-LEAD EKG, INTERMITTENT BP. SUPPLEMENTAL O2 TO BE TITRATED THROUGHOUT PROCEDURE TO MAINTAIN O2 SATURATION ABOVE 90%. PATIENT DETERMINED TO BE ASA APPROPRIATE FOR PROPOFOL SEDATION PRIOR TO START OF PROCEDURE BY
--- NOTE | 2024-02-09 11:12 | NUR ---
PT TO DAY SURGERY STEP DOWN FROM COLONOSCOPY; BEDSIDE REPORT RECEIVED. PT IS AWAKE, ALERT AND ORIENTED; ABLE TO MOVE SELF IN BED. VSS. PT HAS NO COMPLAINTS.
--- NOTE | 2024-02-09 11:20 | NUR ---
TOLERATING PO FLUIDS WELL.
--- NOTE | 2024-02-09 11:21 | NUR ---
Discharge instructions reviewed with patient. Patient verbalizes understanding. Copy given to patient to take home. Patient States Post-Procedure ride home has been arranged.
--- NOTE | 2024-02-09 11:33 | NUR ---
Patient up to Ambulate independently. Gait steady. Discharged via wheelchair to private car for ride home.
== END 2024-02-09 11:34 | disposition home or self-care (01) ==
LOC: ORSCMMR 09:08 → ORD 10:00 → ORSCMMR 11:34
PROVIDERS: Internal Medicine Gastroenterology
PROC: 0DBE8ZX Excision of Large Intestine, Via Natural or Artificial Opening Endoscopic, Diagnostic (ICD-10-PCS; principal; 2024-02-09 10:00)
DX: K92.1 Melena (principal); K64.4 Residual hemorrhoidal skin tags; Z79.899 Other long term (current) drug therapy; Z87.891 Personal history of nicotine dependence; Z79.82 Long term (current) use of aspirin
CPT/HCPCS: 88305; J2704; J7120